=== PATIENT | female | born 1985 | race Caucasian/White ===

== ENCOUNTER 2017-04-11 18:11 | Inpatient (IN) | payer BC ==
[~2017-04-11] VITALS: Ht 165.1 cm; Wt 97.5 kg
--- NOTE | ~2017-04-11 | OR ---
PATIENT'S NAME: TERA LOWE [facility] AGE: 32 Y [address] ROOM: [place] [address] LOCATION: GO ADMIT DATE: 04/11/2017 OR/Procedure Report DISCHARGE DATE: FAMILY PHYSICIAN: Orlin Paez PA-C ATTENDING PHYSICIAN: Julisa Munroe SURGEON: Julisa Munroe MD STAINED GLASS ARTIST: DATE OF PROCEDURE: 04/12/2017 PREOPERATIVE DIAGNOSES: 1. Intrauterine at 39-1/2 weeks. 2. Induction of labor. 3. Group B strep positive. POSTOPERATIVE DIAGNOSES: 1. Intrauterine at 39-1/2 weeks. 2. Induction of labor. 3. Group B strep positive. PROCEDURE: Spontaneous vaginal delivery. ESTIMATED BLOOD LOSS: 300 mL. ANESTHESIA: Epidural. FINDINGS: Female , score 8 and 9. Weight 8 pounds 6 ounces. Intact placenta, 3-vessel cord. Clear amniotic fluid. No lacerations. INDICATIONS: This patient is a 32-year-old, -0-1-2 female, who presented for an induction. She had Prostin gel followed by Pitocin, artificial rupture of membranes; and when she had active labor, she progressed along a normal labor curve to complete. She underwent expulsive efforts for about 20 minutes. PROCEDURE: With expulsive effort, the head delivered over an intact perineum. The rest of the fetus delivered. The nose and mouth were bulb suctioned. The cord was clamped and cut. The infant was handed to awaiting team. Cord blood was drawn. The placenta delivered with manual traction. Cervix, vagina, and perineum were examined. No lacerations were noted. COMPLICATIONS: None, CONDITION: Mom stable in room. Infant to nursery. PATIENT'S NAME: TERA LOWE [facility] AGE: 32 Y [address] ROOM: [place] [address] LOCATION: [facility] ADMIT DATE: 04/11/2017 OR/Procedure Report DISCHARGE DATE: FAMILY PHYSICIAN: Orlin Paez PA-C ATTENDING PHYSICIAN: Julisa Munroe MD GEORGIE GARDUNOJ/modl /[id number] d: 04/13/17 1451 t: 04/16/17 0943, OPERATIVE SUMMARY
[2017-04-11] MEDS ORDERED: PRENATAL 1+1)(P1 TAB PO (19:36)
[2017-04-11 20:07] LABS: BASOPHIL % 0.3 %; EOSINOPHIL # 0.1 K/uL (0.0-0.5); EOSINOPHIL % 0.8 %; HEMATOCRIT 34.9 % (33.0-46.0); HEMOGLOBIN 11.6 g/dL (11.0-15.0); IMMATURE GRANULOCYTE # 0.1 K/uL (0.0-0.3); IMMATURE GRANULOCYTE % 0.9 %; LYMPHOCYTE # 1.8 K/uL (0.8-4.0); LYMPHOCYTE % 20.5 %; MCH 29.9 pg (27.0-34.0); MCHC 33.2 gm/dL (32.0-36.5); MCV 89.9 fl (83.0-98.0); MONOCYTE # 0.6 K/uL (0.0-1.0); MONOCYTE % 6.2 %; MPV 10.9 fl (9.4-12.4); NEUTROPHIL # (ANC) 6.3 K/uL (1.8-7.8); NEUTROPHIL % 71.3 %; NRBC % 0 /100WBC (0-0.00); PLATELET COUNT 127 K/uL (150-450); RBC 3.88 M/uL (3.50-5.50); RDW-CV 15.7 % (11.9-14.6); WBC 8.9 K/uL (4.0-11.0)
[2017-04-13 05:01] LABS: BASOPHIL % 0.2 %; EOSINOPHIL # 0.1 K/uL (0.0-0.5); EOSINOPHIL % 1.1 %; HEMATOCRIT 37.9 % (33.0-46.0); HEMOGLOBIN 12.3 g/dL (11.0-15.0); IMMATURE GRANULOCYTE # 0.1 K/uL (0.0-0.3); IMMATURE GRANULOCYTE % 0.8 %; LYMPHOCYTE # 2.2 K/uL (0.8-4.0); LYMPHOCYTE % 17.5 %; MCH 29.9 pg (27.0-34.0); MCHC 32.5 gm/dL (32.0-36.5); MCV 92.2 fl (83.0-98.0); MONOCYTE # 0.9 K/uL (0.0-1.0); MONOCYTE % 7.2 %; NEUTROPHIL # (ANC) 9.1 K/uL (1.8-7.8); NEUTROPHIL % 73.2 %; NRBC % 0 /100WBC (0-0.00); PLATELET COUNT 123 K/uL (150-450); RBC 4.11 M/uL (3.50-5.50); RDW-CV 15.8 % (11.9-14.6); WBC 12.5 K/uL (4.0-11.0)
[2017-04-14] MEDS ORDERED: APNO TOP (09:49)
[2017-04-14] MEDS ORDERED: DERMOPLAST SPRA56 GM TOP (09:50)
[2017-04-14] MEDS ORDERED: MOTRIN800 MG PO (09:50)
[2017-04-14] MEDS ORDERED: PERCOCET 5-3251 EACH PO (09:52)
== END 2017-04-14 11:35 | disposition disaster alternative care site (69) | DRG 775 ==
LOC: GOBM 18:11 → GOBS 18:13 → GOBM 18:14 → GOBS 20:06 → GOBM 04-16 09:54
PROVIDERS: ADMIT Obstetrics & Gynecology
PROC: 10E0XZZ Delivery of Products of Conception, External Approach (ICD-10-PCS; principal; 2017-04-12)
PROC: 10907ZC Drainage of Amniotic Fluid, Therapeutic from Products of Conception, Via Natural or Artificial Opening (ICD-10-PCS; principal; 2017-04-12)
PROC: 3E0P7GC Introduction of Other Therapeutic Substance into Female Reproductive, Via Natural or Artificial Opening (ICD-10-PCS; principal; 2017-04-12)
DX: O99.824 Streptococcus B carrier state complicating childbirth (principal); Z37.0 Single live birth; Z3A.39 39 weeks gestation of pregnancy
CPT/HCPCS: J2001; J2540; J2590; J3010; J7040; J7120